=== PATIENT | male | born 1995 | race Two or more races ===

== ENCOUNTER 2022-09-04 22:32 | Emergency (ER) | payer SELFPAY ==
[~2022-09-04] VITALS: Ht 139.7 cm; Wt 64.5 kg
[2022-09-05] MEDS: CLINDAMYCIN 300 MG/D5% WATER 50 ML IV ONE ×2 (02:25→02:42)
[2022-09-05 03:13] LABS: BASOPHILS % (AUTO) 0.4 % (0.0-2.0); EOSINOPHILS % (AUTO) 0.3 % (1.0-6.0); HEMATOCRIT 42.8 % (41-53); HEMOGLOBIN 14.7 g/dL (13.5-17.5); LYMPHOCYTES # (AUTO) 0.8 K/uL (1.0-4.8); LYMPHOCYTES % (AUTO) 6.8 % (22.0-44.0); MEAN CORPUSCULAR HGB CONC 34.3 G/dL (31.0-37.0); MEAN CORPUSCULAR VOLUME 88 fL (80-100); MONOCYTES # (AUTO) 0.9 K/uL (0.1-1.0); NEUTROPHILS # (AUTO) 10.7 K/uL (1.8-7.7); PLATELET COUNT (AUTO) 238 K/uL (150-450); RED BLOOD CELL COUNT(AUTO) 4.89 MIL/uL (4.50-5.90); RED CELL DISTRIBUTION WIDTH 13.3 % (11.5-14.5)
[2022-09-05 03:15] LABS: ANION GAP 12 mmol/L (8-16); CARBON DIOXIDE 22 mmol/L (22-29); CHLORIDE 103 mmol/L (98-107); CREATININE 0.87 mg/dL (0.60-1.30); GLOMERULAR FILTR. RATE CALC > 60 mL/min (>60); GLUCOSE,RANDOM 116 mg/dL (70-110); NEUTROPHILS % (AUTO) 85.5 % (40.0-70.0); SODIUM SERUM 137 mmol/L (136-145)
[2022-09-05 03:21] LABS: ALANINE AMINOTRANSFERASE 23 U/L (12-78); ALKALINE PHOSPHATASE 141 U/L (46-116); ASPARTATE AMINOTRANSFERASE 17 U/L (15-37); BILIRUBIN,TOTAL 0.9 mg/dL (0.1-1.0)
[2022-09-05] MEDS ORDERED: CLIN-142 PO (04:51)
[2022-09-05 05:06] VITALS: BP 99/60; PULSE 101; RESP 18; TEMP 98.6
== END 2022-09-05 05:20 | disposition home or self-care (01) ==
LOC: EMS 22:34
DX: L03.211 Cellulitis of face (principal)
CPT/HCPCS: 99283; 80053; 85025; 87040; 36415; 96374; J3490